=== PATIENT | female | born 1965 | race Caucasian/White ===

== ENCOUNTER 2024-07-07 09:30 | Outpatient (CLI) | payer BC | END 2024-07-07 09:31 | disposition home or self-care (01) | LOC: MERGE 09:30 → PET 09:30 | PROVIDERS: ATTEND Internal Medicine Hematology & Oncology | DX: C34.11 Malignant neoplasm of upper lobe, right bronchus or lung (principal); E27.9 Disorder of adrenal gland, unspecified; K63.89 Other specified diseases of intestine; Z90.49 Acquired absence of other specified parts of digestive tract | CPT/HCPCS: 78815; A9552 ==

== ENCOUNTER 2024-07-14 09:25 | Observation (INO) | payer BC ==
[2024-07-14] MEDS ORDERED: Aspirin Chewable 81 MG TAB ONE (11:35)
[2024-07-14 11:36] LABS: #Basophils Less than 0.03 10x3/uL (0.0-0.2); %Basophils 0.4 % (0.0-1.0); %Eosinophils 1.1 % (0.0-10.0); %Monocytes 13.6 % (0.0-10.0); %Neutrophils 74.1 % (42.0-75.0); Hematocrit 33.1 % (36.0-47.0); Hemoglobin 10.6 g/dL (12.0-16.0); Mean Corpuscular Hemoglobin 26.4 pg (27.0-31.0); Mean Corpuscular Volume 82.5 fL (78.0-98.0); Mean Platelet Volume 10.1 fL (7.4-10.4); Platelet Count 191 10x3/uL (130-400); RBC Distribution Width 15.7 % (11.5-14.5); Red Blood Cell (RBC) Count 4.01 mill/uL (4.20-5.40)
[2024-07-14 11:47] LABS: ALT (SGPT) 13 U/L (8-55); AST (SGOT) 15 U/L (5-34); Alkaline Phosphatase 87 U/L (40-110); Anion Gap 12 mmol/L (10-20); BUN (Urea Nitrogen) 14 mg/dL (9.8-20.1); Bilirubin, Total 1.5 mg/dL (0.2-1.2); Calc. Creatinine Clearance 0 mL/min (70-130); Calcium 9.8 mg/dL (7.8-10.44); Carbon Dioxide 25 mmol/L (22-29); Chloride 104 mmol/L (98-107); Estimated GFR 93; Globulin 3.3 g/dL (2.4-3.5); Glucose 99 mg/dL (70-105); Lipase 7 U/L (8-78); Potassium 3.7 mmol/L (3.5-5.1); Protein, Total 7.3 g/dL (6.0-8.3); Sodium 137 mmol/L (136-145)
[2024-07-14 11:53] LABS: Troponin I Less than 0.010 ng/mL (< 0.028)
[2024-07-14] MEDS ORDERED: Iopamidol-370 76% 500 ML MDV (1 ML CHARGE) ONE (12:12)
[2024-07-14] MEDS ORDERED: Acetaminophen 325 MG TAB PO PRN (13:46)
[2024-07-14] MEDS ORDERED: traMADol HCl 50 MG TAB PO PRN (13:46)
[2024-07-14] MEDS ORDERED: Guaifenesin DM 100-10/5 ML UDCUP PO PRN (13:46)
[2024-07-14] MEDS ORDERED: Ondansetron PF 4 MG/2 ML Vial IVP PRN (13:46)
[2024-07-14] MEDS ORDERED: Senokot S 8.6-50 MG TAB PO PRN (13:46)
[2024-07-14] MEDS ORDERED: Calcium Carbonate 500 MG ChewTAB PO PRN (13:46)
[2024-07-14] MEDS ORDERED: Nitroglycerin 0.4 MG TAB (25 Tab Bottle) SL PRN (13:48)
[2024-07-14 14:25] LABS: Troponin I Less than 0.010 ng/mL (< 0.028)
[2024-07-14 17:46] LABS: Troponin I 0.019 ng/mL (< 0.028)
[2024-07-14 21:54] VITALS: BMI 27.1
[2024-07-14] MEDS: cefTRIAXone\\ROCEPHIN 1 GM in Sodium Chloride 0.9% 100 ML IVPB SCH ×2 (22:04→22:07)
[2024-07-14] MEDS: methylPREDNISolone Sod Succ 40 MG VIAL IVP SCH ×2 (22:05→22:06)
[2024-07-14] MEDS: Metoprolol Tartrate 25 MG TAB PO SCH (22:05)
[2024-07-14] MEDS: Ipratropium/Albuterol 3 ML NEB NEB SCH (22:45)
[2024-07-15 04:41] LABS: #Basophils Less than 0.03 10x3/uL (0.0-0.2); #Eosinphils Less than 0.03 10x3/uL (0.0-0.7); %Basophils 0.4 % (0.0-1.0); %Eosinophils 0.4 % (0.0-10.0); %Lymphocytes 8.1 % (21.0-51.0); %Monocytes 3.4 % (0.0-10.0); %Neutrophils 87.3 % (42.0-75.0); Hematocrit 31.1 % (36.0-47.0); Hemoglobin 9.9 g/dL (12.0-16.0); Mean Corpuscular HGB CONC 31.8 g/dL (32.0-36.0); Mean Corpuscular Hemoglobin 26.1 pg (27.0-31.0); Mean Corpuscular Volume 81.8 fL (78.0-98.0); Mean Platelet Volume 10.2 fL (7.4-10.4); Platelet Count 181 10x3/uL (130-400); RBC Distribution Width 15.8 % (11.5-14.5)
[2024-07-15 05:04] LABS: ALT (SGPT) 14 U/L (8-55); AST (SGOT) 13 U/L (5-34); Albumin 3.5 g/dL (3.5-5.0); Alkaline Phosphatase 80 U/L (40-110); Anion Gap 11 mmol/L (10-20); BUN (Urea Nitrogen) 12 mg/dL (9.8-20.1); Bilirubin, Total 0.4 mg/dL (0.2-1.2); Calc. Creatinine Clearance 80 mL/min (70-130); Calcium 9.6 mg/dL (7.8-10.44); Carbon Dioxide 22 mmol/L (22-29); Cardiac Risk 4.2 (Less than 4.5); Chloride 107 mmol/L (98-107); Cholesterol 175 mg/dl (< 200 Desired); Estimated GFR 72; Globulin 3.3 g/dL (2.4-3.5); Glucose 244 mg/dL (70-105); HDL Cholesterol 42 mg/dL (>60 Neg Risk); LDL Cholesterol, Calculated 118 mg/dL; Potassium 3.7 mmol/L (3.5-5.1); Protein, Total 6.8 g/dL (6.0-8.3); Sodium 136 mmol/L (136-145); Triglycerides 76 mg/dL (Less than 150)
[2024-07-15] MEDS ORDERED: Enoxaparin 40 MG (0.4 mL) SYRINGE SC SCH (09:00)
[2024-07-15] MEDS ORDERED: FLU (Fluarix Triv) TS24-25(6MOS UP)/PF 45 MCG/0.5 ML Syringe IM ONE (09:00)
[2024-07-15] MEDS ORDERED: Regadenoson 0.4 MG/5 ML SYRINGE ONE (10:14)
[2024-07-15] MEDS: Aspirin Chewable 81 MG TAB PO SCH (12:52)
[2024-07-15] MEDS: Pantoprazole DR 40 MG TAB PO SCH (12:52)
[2024-07-15 16:28] VITALS: BMI 27.1
[2024-07-15 17:26] VITALS: BP 127/59; TEMP 98.3
== END 2024-07-15 18:59 | disposition home or self-care (01) ==
LOC: ERS 09:25 → ERHOLD 13:30 → 2NO 13:30
PROVIDERS: ADMIT Internal Medicine; ATTEND Hospitalist
DX: R07.1 Chest pain on breathing (principal); J20.9 Acute bronchitis, unspecified; C34.11 Malignant neoplasm of upper lobe, right bronchus or lung; I10 Essential (primary) hypertension; Z87.891 Personal history of nicotine dependence; Z88.2 Allergy status to sulfonamides
CPT/HCPCS: 36415; 71046; 71275; 78452; 80053; 80061; 83690; 83880; 84484; 85025; 93005; 93017; 94640; 94760; 96374; 96375; 96376; A9500; G0378; J0696; J2785; J2919; J7620; Q9967

== ENCOUNTER 2024-07-23 03:51 | Inpatient (IN) | payer BC ==
[2024-07-23] MEDS ORDERED: Morphine 4 MG/ML VIAL ONE (05:02)
[2024-07-23] MEDS ORDERED: Ondansetron PF 4 MG/2 ML Vial ONE (05:02)
[2024-07-23 05:56] LABS: #Basophils 0.03 10x3/uL (0.0-0.2); #Eosinophils Less than 0.03 10x3/uL (0.0-0.7); %Basophils 0.3 % (0.0-1.0); %Eosinophils 0.1 % (0.0-10.0); %Lymphocytes 3.9 % (21.0-51.0); %Monocytes 6.7 % (0.0-10.0); %Neutrophils 87.7 % (42.0-75.0); Hematocrit 39.3 % (36.0-47.0); Hemoglobin 12.8 g/dL (12.0-16.0); Mean Corpuscular HGB CONC 32.6 g/dL (32.0-36.0); Mean Corpuscular Hemoglobin 26.4 pg (27.0-31.0); Mean Platelet Volume 9.6 fL (7.4-10.4); Platelet Count 245 10x3/uL (130-400); RBC Distribution Width 15.9 % (11.5-14.5); Red Blood Cell (RBC) Count 4.85 mill/uL (4.20-5.40)
[2024-07-23 06:13] LABS: ALT (SGPT) 16 U/L (8-55); AST (SGOT) 14 U/L (5-34); Alkaline Phosphatase 80 U/L (40-110); Anion Gap 19 mmol/L (10-20); BUN (Urea Nitrogen) 24 mg/dL (9.8-20.1); Bilirubin, Total 0.6 mg/dL (0.2-1.2); Calc. Creatinine Clearance 0 mL/min (70-130); Calcium 10.2 mg/dL (7.8-10.44); Carbon Dioxide 23 mmol/L (22-29); Chloride 99 mmol/L (98-107); Estimated GFR 87; Globulin 2.9 g/dL (2.4-3.5); Glucose 121 mg/dL (70-105); Lipase 8 U/L (8-78); Potassium 3.6 mmol/L (3.5-5.1); Protein, Total 6.9 g/dL (6.0-8.3); Sodium 137 mmol/L (136-145)
[2024-07-23 06:15] LABS: Bacteria/HPF None Seen HPF (None Seen); Bilirubin Negative (Negative); Blood, Urine Negative (Negative); CAUTI Indications for Culture Fever or rigors; Clarity Clear (Clear); Glucose, Urine (Dipstick) Normal (Negative); Ketone, Urine Negative (Negative); Leukocyte Negative Leu/uL (Negative); Nitrite Negative (Negative); Protein, Urine (Dipstick) 20 mg/dL (Neg-Trace); RBC/HPF 0-3 HPF (0-3); Squamous Epithelial 0-3 HPF (0-3); Urobilinogen Normal mg/dL (Less than 2); WBC/HPF 0-3 HPF (0-3); pH, Urine 8.5 (5.0-9.0)
[2024-07-23 06:18] LABS: Troponin I Less than 0.010 ng/mL (< 0.028)
[2024-07-23 06:18] LABS: Specific Gravity, Urine 1.055 (1.002-1.036); Urine Culture Reflex No No
[2024-07-23] MEDS ORDERED: Promethazine HCl 25 MG/ML VIAL ONE (06:18)
[2024-07-23] MEDS ORDERED: Cefepime 1 GM VIAL ONE (06:46)
[2024-07-23] MEDS ORDERED: Sodium Chloride 0.9% 100 ML ONE (06:46)
[2024-07-23 09:32] VITALS: BMI 28.2
[2024-07-23] MEDS ORDERED: Ondansetron PF 4 MG/2 ML Vial IVP PRN (09:32)
[2024-07-23] MEDS: Lactated Ringer's 1,000 ML IV SCH (10:25)
[2024-07-23] MEDS ORDERED: Acetaminophen 650 MG Suppository PR PRN (10:30)
[2024-07-23] MEDS ORDERED: BECLOMETHASONE DIPROPIONATE IH PRN (10:31)
[2024-07-23] MEDS ORDERED: Albuterol 200 PUFF (6.7GM INHALER) INH PRN (10:31)
[2024-07-23] MEDS ORDERED: Morphine 2 MG/ML VIAL SLOW IVP PRN (10:33)
[2024-07-23] MEDS ORDERED: Iopamidol-370 76% 500 ML MDV (1 ML CHARGE) ONE (11:01)
[2024-07-23 11:26] LABS: Lactic Acid 3.02 mmol/L (0.5-2.2)
[2024-07-23] MEDS: Morphine 4 MG/ML VIAL SLOW IVP PRN (13:14)
[2024-07-23 16:43] LABS: Lactic Acid 1.62 mmol/L (0.5-2.2)
[2024-07-23] MEDS: Ondansetron PF 4 MG/2 ML Vial IVP PRN (17:39)
[2024-07-24 06:11] LABS: #Basophils Less than 0.03 10x3/uL (0.0-0.2); %Basophils 0.3 % (0.0-1.0); %Lymphocytes 10.2 % (21.0-51.0); %Monocytes 16.3 % (0.0-10.0); %Neutrophils 71.5 % (42.0-75.0); Hematocrit 32.8 % (36.0-47.0); Hemoglobin 10.1 g/dL (12.0-16.0); Mean Corpuscular HGB CONC 30.8 g/dL (32.0-36.0); Mean Corpuscular Hemoglobin 26.1 pg (27.0-31.0); Mean Corpuscular Volume 84.8 fL (78.0-98.0); Mean Platelet Volume 9.6 fL (7.4-10.4); Platelet Count 172 10x3/uL (130-400); RBC Distribution Width 16.3 % (11.5-14.5); Red Blood Cell (RBC) Count 3.87 mill/uL (4.20-5.40)
[2024-07-24 06:21] LABS: Anion Gap 12 mmol/L (10-20); BUN (Urea Nitrogen) 13 mg/dL (9.8-20.1); Calc. Creatinine Clearance 113 mL/min (70-130); Calcium 8.8 mg/dL (7.8-10.44); Carbon Dioxide 26 mmol/L (22-29); Chloride 102 mmol/L (98-107); Estimated GFR 101; Glucose 78 mg/dL (70-105); Potassium 3.9 mmol/L (3.5-5.1); Sodium 136 mmol/L (136-145)
[2024-07-24] MEDS: Sodium Chloride 0.9% 1,000 ML IV SCH (12:11)
[2024-07-24] MEDS: Morphine 4 MG/ML VIAL SLOW IVP PRN (20:43)
[2024-07-25 04:45] LABS: #Basophils Less than 0.03 10x3/uL (0.0-0.2); #Eosinophils Less than 0.03 10x3/uL (0.0-0.7); %Basophils 0.4 % (0.0-1.0); %Eosinophils 0.8 % (0.0-10.0); %Lymphocytes 12.1 % (21.0-51.0); %Monocytes 17.8 % (0.0-10.0); %Neutrophils 67.7 % (42.0-75.0); Hematocrit 28.8 % (36.0-47.0); Hemoglobin 9.1 g/dL (12.0-16.0); Mean Corpuscular HGB CONC 31.6 g/dL (32.0-36.0); Mean Corpuscular Volume 82.3 fL (78.0-98.0); Mean Platelet Volume 9.9 fL (7.4-10.4); Platelet Count 141 10x3/uL (130-400); RBC Distribution Width 15.9 % (11.5-14.5)
[2024-07-25 04:53] LABS: Anion Gap 11 mmol/L (10-20); BUN (Urea Nitrogen) 9 mg/dL (9.8-20.1); Calc. Creatinine Clearance 105 mL/min (70-130); Calcium 8.5 mg/dL (7.8-10.44); Carbon Dioxide 26 mmol/L (22-29); Chloride 102 mmol/L (98-107); Estimated GFR 94; Glucose 74 mg/dL (70-105); Potassium 3.8 mmol/L (3.5-5.1); Sodium 135 mmol/L (136-145)
[2024-07-25] MEDS ORDERED: MD-Gastroview 120 ML BOT ONE (07:53)
[2024-07-25] MEDS: Ondansetron PF 4 MG/2 ML Vial IVP SCH (11:25)
[2024-07-25] MEDS ORDERED: CEFAZOLIN 2 GM in Sodium Chloride 0.9% 100 ML IVPB SCH (14:45)
[2024-07-25 16:05] VITALS: BMI 28.2
[2024-07-25] MEDS: Acetaminophen 325 MG TAB PO PRN (20:02)
[2024-07-25] MEDS: Pantoprazole DR 40 MG TAB PO SCH (20:02)
[2024-07-25] MEDS: Metoprolol Tartrate 25 MG TAB PO SCH (20:03)
[2024-07-26] MEDS ORDERED: Lidocaine 2% PF 5 ML VIAL ONE (10:25)
[2024-07-26] MEDS ORDERED: PROPOFOL 20 ML ONE (10:25)
[2024-07-26] MEDS ORDERED: Bupivacaine 0.25% HCL 30 ML VIAL ONE (10:33)
[2024-07-26] MEDS ORDERED: EPINEPHrine 1 MG/ML VIAL ONE (10:33)
[2024-07-26] MEDS ORDERED: Lidocaine 1% (PF) 30 ML VIAL ONE (10:33)
[2024-07-26] MEDS ORDERED: CEFAZOLIN 2 GM VIAL ONE (10:41)
[2024-07-26] MEDS ORDERED: Midazolam HCl 2 mg/2 ml Vial ONE (12:23)
[2024-07-26] MEDS ORDERED: fentaNYL PF 100 MCG/2 ML SYRINGE ONE (12:25)
[2024-07-26] MEDS ORDERED: Ondansetron PF 4 MG/2 ML Vial ONE (12:42)
[2024-07-26] MEDS ORDERED: Dexamethasone 4 mg/ml Vial ONE (12:42)
[2024-07-26 16:01] VITALS: TEMP 97.9
[2024-07-26 16:14] VITALS: BP 112/64
== END 2024-07-26 16:22 | disposition home or self-care (01) | DRG 357 ==
LOC: ERS 03:51 → T4-A 08:21
PROVIDERS: ADMIT Internal Medicine; ATTEND Internal Medicine
PROC: 02HV33Z Insertion of Infusion Device into Superior Vena Cava, Percutaneous Approach (ICD-10-PCS; principal; 2024-07-26)
PROC: 0JH60WZ Insertion of Totally Implantable Vascular Access Device into Chest Subcutaneous Tissue and Fascia, Open Approach (ICD-10-PCS; 2024-07-26)
PROC: B5181ZA Fluoroscopy of Superior Vena Cava using Low Osmolar Contrast, Guidance (ICD-10-PCS; 2024-07-26)
PROC: 3E04305 Introduction of Other Antineoplastic into Central Vein, Percutaneous Approach (ICD-10-PCS; 2024-07-26)
PROC: 3E043XZ Introduction of Vasopressor into Central Vein, Percutaneous Approach (ICD-10-PCS; 2024-07-26)
DX: K56.600 Partial intestinal obstruction, unspecified as to cause (principal); C34.91 Malignant neoplasm of unspecified part of right bronchus or lung; E87.20 Acidosis, unspecified; I10 Essential (primary) hypertension; K21.9 Gastro-esophageal reflux disease without esophagitis; Z79.899 Other long term (current) drug therapy; Z87.891 Personal history of nicotine dependence; Z88.2 Allergy status to sulfonamides; Z88.1 Allergy status to other antibiotic agents; Z98.890 Other specified postprocedural states
CPT/HCPCS: 36415; 71045; 74018; 74177; 74250; 80048; 80053; 81001; 83605; 83690; 83880; 84484; 85025; 93005; 96361; 96374; 96375; C1788; J0171; J0665; J0692; J1100; J1642; J2250; J2272; J2405; J2550; J2704; J7030; J7120; Q9963; Q9967

== ENCOUNTER 2024-09-26 08:57 | Outpatient (CLI) | payer BC | END 2024-09-26 08:58 | disposition home or self-care (01) | LOC: SCSMRI 08:57 | PROVIDERS: ATTEND Nurse Practitioner Family | DX: C34.11 Malignant neoplasm of upper lobe, right bronchus or lung (principal); G93.89 Other specified disorders of brain; R60.9 Edema, unspecified | CPT/HCPCS: 70553; 76376 ==

== ENCOUNTER 2024-09-27 08:00 | Outpatient (CLI) | payer BC | END 2024-09-27 08:01 | disposition home or self-care (01) | LOC: PET 08:00 | PROVIDERS: ATTEND Internal Medicine Hematology & Oncology | DX: C34.11 Malignant neoplasm of upper lobe, right bronchus or lung (principal); R59.0 Localized enlarged lymph nodes; R91.8 Other nonspecific abnormal finding of lung field; E27.8 Other specified disorders of adrenal gland; Z95.828 Presence of other vascular implants and grafts | CPT/HCPCS: 78815; A9552 ==

== ENCOUNTER 2024-11-22 12:56 | Outpatient (CLI) | payer BC ==
[~2024-11-22 12:56] MED LIST: Magnevist 469MG/ML 20 ML VIAL ONE
== END 2024-11-22 12:57 | disposition home or self-care (01) ==
LOC: MRI 12:56
PROVIDERS: ATTEND Internal Medicine Hematology & Oncology
DX: C34.11 Malignant neoplasm of upper lobe, right bronchus or lung (principal)
CPT/HCPCS: 70553; 76376

== ENCOUNTER 2024-11-23 08:00 | Outpatient (CLI) | payer BC | END 2024-11-23 08:01 | disposition home or self-care (01) | LOC: PET 08:00 | PROVIDERS: ATTEND Internal Medicine Hematology & Oncology | DX: C34.11 Malignant neoplasm of upper lobe, right bronchus or lung (principal); R91.1 Solitary pulmonary nodule; J90 Pleural effusion, not elsewhere classified; J98.4 Other disorders of lung | CPT/HCPCS: 78815; A9552 ==